=== PATIENT | female | born 1985 | race Caucasian/White ===

== ENCOUNTER 2020-05-04 15:00 | Outpatient (REF) | payer OTHER, SELFPAY | END 2020-05-04 15:01 | disposition home or self-care (01) | LOC: HO.LAB 15:00 | PROVIDERS: Visit Provider Physician Assistant | DX: R05 Cough (principal); Z20.822 Contact with and (suspected) exposure to COVID-19 | CPT/HCPCS: 36415; U0003 ==

== ENCOUNTER 2020-06-15 11:15 | Outpatient (REF) | payer OTHER, SELFPAY ==
[2020-06-15 13:50] LABS: MANUAL DIFF FLAG NO
[2020-06-15 14:00] LABS: Basophils Percent Auto 0.4 % (0-2); Hematocrit 39.6 % (37-47); Hemoglobin 12.7 g/dl (12.0-16.0); Lymphocytes Absolute Auto 1.6 X10*3/uL (1.2-4.9); Lymphocytes Percent Auto 30.1 % (20-40); Mean Corpuscular HGB Conc 32.1 g/dl (31.0-35.0); Mean Corpuscular Volume 87.2 fL (80-98); Mean Platelet Volume 11.2 fL (9.4-12.3); Monocytes Absolute Auto 0.5 X10*3/uL (0.1-1.2); Monocytes Percent Auto 9.8 % (2-11); Neutrophils Absolute Auto 3.2 X10*3/uL (2.0-8.3); Neutrophils Percent Auto 59.7 % (45-73); Platelet Count 271 X10*3/uL (160-400); Red Blood Count 4.54 X10*6/uL (4.20-5.50); Red Cell Distribution Width 12.7 % (11.0-16.0); White Blood Count 5.4 X10*3/uL (4.8-10.8)
[2020-06-15 14:44] LABS: Alanine Aminotransferase 10 U/L (0-31); Albumin Level 4.6 g/dL (3.5-5.0); Alkaline Phosphatase 71 U/L (39-117); Anion Gap 13 (12-20); Aspartate Amino Transferase 11 U/L (5-31); Bilirubin Total 0.6 mg/dL (0.0-1.0); Blood Urea Nitrogen 10 mg/dL (9-16); Calcium 9.2 mg/dL (8.4-10.2); Carbon Dioxide 28 mmol/L (22-29); Chloride 105 mmol/L (96-108); Cholesterol 127 mg/dL; Estimated Glomerular Filt Rate > 60; Glucose Fasting 83 mg/dL (60-99); HDL Cholesterol 44 mg/dL; LDL Cholesterol Calculated 71 mg/dl; Sodium 142 mmol/L (135-145); Triglycerides 64 mg/dL
[2020-06-15 15:05] LABS: TSH reflex Free T4 2.36 uIU/mL (0.32-4.0); Vitamin D 25-OH Total 8.8 ng/mL (>30)
== END 2020-06-15 11:16 | disposition home or self-care (01) ==
LOC: HO.HMGCLDS 11:15
PROVIDERS: PCP Internal Medicine; Visit Provider Internal Medicine
DX: Z00.01 Encounter for general adult medical examination with abnormal findings (principal); Z13.220 Encounter for screening for lipoid disorders; Z13.29 Encounter for screening for other suspected endocrine disorder; Z20.822 Contact with and (suspected) exposure to COVID-19
CPT/HCPCS: 36415; 80053; 80061; 82306; 84443; 85025

== ENCOUNTER → 2020-11-16 10:21 | Outpatient (REF) | payer OTHER, SELFPAY ==
--- NOTE | 2020-11-16 10:28 | CA_ITS ---
Transthoracic Echocardiogram Patient (Last, First, Middle): Beth Arteaga, Gender: Female Date of : 1985 Age: 35 Procedure Date: 11/16/2020 Procedure Type: Transthoracic Echocardiogram Location: OP Height: 62. cm Weight: 45. kg BSA: 0.72 m2 Heart Rate: bpm BP: 110 / 63 mmHg Polishing Machine Operator: LEANN Referring MD: Mildred Fernández NP Symptoms: R01.1 - Cardiac murmur, unspecified Study Quality: Good ECG Rhythm: Sinus Conclusions: - The left ventricular systolic function is normal. The calculated ejection fraction is 63% by biplane method. - No obvious valvular pathology seen on this study. Findings Left Ventricle Normal left ventricular cavity size. There is normal left ventricular wall thickness. The left ventricular systolic function is normal. The calculated ejection fraction is 63% by biplane method. There is no evidence of regional wall motion abnormalities. Diastolic function is normal for age. Right Ventricle Normal right ventricular cavity size and systolic function. Atria Both atria are normal in size. Aortic Valve There is a normal trileaflet aortic valve. There is no aortic valve stenosis. There is no aortic valve regurgitation. Mitral Valve The mitral valve appears normal. There is no mitral valve regurgitation. There is no mitral valve stenosis. Pulmonic Valve The pulmonic valve was not well visualized. Tricuspid Valve There is trace tricuspid valve regurgitation. The pulmonary artery systolic pressure is normal. Great Vessels The aortic annulus, sinuses of valsalva, and asc aorta are normal in size. Venous The inferior vena cava was not well visualized. Pericardium/Pleural There is no evidence of pericardial effusion. Prior Study Comparison No prior study available for comparison. Recommendations, Care & Conclusions No obvious valvular pathology seen on this study. Measurements 2D Linear Measurements IVSd: 0.70 0.6-0.9/0.6-1.0 cm LVIDd: 3.92 3.9-5.3/4.2-5.9 cm LVIDd Index: 5.44 2.4-3.2/2.2-3.1 cm/m2 LVIDs: 2.57 2.0-3.6 cm LVPWd: 0.78 0.7-1.1 cm Ao Root: 2.30 2.1-3.5 cm LA Diam: 2.10 2.7-3.8/3.0-4.0 cm LAIDs Index: 2.92 1.5-2.3 cm/m2 LV Mass: 100.57 67-162/88-224 g LV Mass Index: 139.68 43-95/49-115 g/m2 LVOT Diam: 1.70 3.0+(-)1.3 cm 2D Systolic Function EF 4C: 65.00 >55% EF 2C: 61.50 >55% EF BiP: 63.20 >55% Mitral Valve MV Pk E: 0.68 MV PK A: 0.49 MV Decel Time: 130.00 E/A: 1.40 E'Lateral: 16.60 E'Medial: 13.20 E/E' Med: 5.10 E/E' Lat: 4.10 PHT: 38.00 MVA PHT: 5.79 Decel Mccurtain: 5.22 Aortic Valve AoV Pk Ozzie: 1.30 AoV Pk Grad: 7.00 LVOT LVOT Pk Ozzie: 0.98 LVOT Mn Ozzie: 0.75 LVOT VTI: 0.19 LVOT Pk Grad: 4.00 LVOT Mn Grad: 3.00 LVOT Diam: 1.70 LVOT Area: 2.27 Diastolic Function MV Pk E: 0.68 MV Pk A: 0.49 E/A: 1.40 E'Medial: 13.20 E/E' Med: 5.10 E' Laterial: 16.60 E/E' Lat: 4.10 Right Ventricle TAPSE (mm): 2.11 Tricuspid Valve TR Pk Ozzie: 1.98 TR Pk Grad: 16.00 RA Press: 3.00 RVSP: 19.00 Great Vessels Aorta Ao Root-2D: 2.30 2.0-3.7 cm Ao Asc: 2.40 2.1-3.4 cm Updated in Other Vendor System with Status of Final Jacky Ya MD electronically signed on 11/16/2020 12:00:48 PM with status of Final
== END ==
LOC: HO.CARD 10:21
PROVIDERS: Visit Provider Nurse Practitioner Family
DX: R01.1 Cardiac murmur, unspecified (principal)
CPT/HCPCS: 93306

== ENCOUNTER 2021-10-26 17:42 | Emergency (ER) | payer OTHER, SELFPAY ==
--- NOTE | ~2021-10-26 | XR_ITS ---
EXAMINATION: XR CHEST CLINICAL INFORMATION: Hemoptysis COMPARISON: None TECHNIQUE: Frontal view of the chest was obtained. FINDINGS: No significant abnormality is noted involving the heart, lungs, mediastinum, bony thorax or soft tissues. XR/XR chest 1V IMPRESSION: Unremarkable examination.
[2021-10-26 19:43] VITALS: BP 118/68; PULSE 85; RESP 16; TEMP 36.7; O2SAT 99; BMI 17.9
[2021-10-26 20:18] LABS: COVID-19 Test Negative (Negative); IDNOW Serial# 55D5AD1C
== END 2021-10-26 22:25 | disposition left against medical advice (07) ==
PROVIDERS: Emergency Provider Emergency Medicine
DX: R04.2 Hemoptysis (principal); Z20.822 Contact with and (suspected) exposure to COVID-19; Z79.899 Other long term (current) drug therapy
CPT/HCPCS: 71045; 87635; 99281; 99282

== ENCOUNTER 2022-01-08 09:34 | Outpatient (REF) | payer OTHER, SELFPAY ==
[2022-01-08 11:15] LABS: MANUAL DIFF FLAG NO
[2022-01-08 11:26] LABS: Basophils Percent Auto 0.5 % (0-2); Hematocrit 35.4 % (37.0-47.0); Hemoglobin 11.5 g/dl (12.0-16.0); Lymphocytes Absolute Auto 1.5 X10*3/uL (1.2-4.9); Mean Corpuscular HGB Conc 32.5 g/dl (31.0-35.0); Mean Corpuscular Hemoglobin 27.6 pg (27.0-33.0); Mean Corpuscular Volume 84.9 fL (80.0-98.0); Mean Platelet Volume 10.5 fL (9.4-12.3); Monocytes Absolute Auto 0.4 X10*3/uL (0.1-1.2); Monocytes Percent Auto 9.4 % (2-11); Neutrophils Absolute Auto 2.4 x10*3/uL (2.0-8.3); Neutrophils Percent Auto 56.1 % (45-73); Platelet Count 277 X10*3/uL (160-400); Red Blood Count 4.17 X10*6/uL (4.20-5.50); Red Cell Distribution Width 12.4 % (11.0-16.0); White Blood Count 4.3 X10*3/uL (4.8-10.8)
[2022-01-08 11:41] LABS: Alanine Aminotransferase 11 U/L (0-31); Anion Gap 13 (12-20); Aspartate Amino Transferase 13 U/L (5-31); Blood Urea Nitrogen 7 mg/dL (9-16); Calcium 9.4 mg/dL (8.4-10.2); Carbon Dioxide 30 mmol/L (22-29); Chloride 104 mmol/L (96-108); Cholesterol 115 mg/dL; Estimated Glomerular Filt Rate > 60; Glucose Fasting 90 mg/dL (60-99); HDL Cholesterol 39 mg/dL; LDL Cholesterol Calculated 66 mg/dl; Potassium 4.4 mmol/L (3.3-5.1); Sodium 143 mmol/L (135-145); Triglycerides 53 mg/dL
[2022-01-08 12:03] LABS: Vitamin D 25-OH Total 35.1 ng/mL (>30)
[2022-01-08 12:06] LABS: Folate 9.7 ng/mL (> or = 4.0); Vitamin B12 289 pg/mL (200-900)
== END 2022-01-08 09:35 | disposition home or self-care (01) ==
LOC: HO.HMGCLDS 09:34
PROVIDERS: PCP Internal Medicine; Visit Provider Internal Medicine
DX: Z00.01 Encounter for general adult medical examination with abnormal findings (principal); E51.11 Dry beriberi; E55.9 Vitamin D deficiency, unspecified; F79 Unspecified intellectual disabilities; F90.9 Attention-deficit hyperactivity disorder, unspecified type; K21.00 Gastro-esophageal reflux disease with esophagitis, without bleeding; K59.00 Constipation, unspecified
CPT/HCPCS: 36415; 80048; 80061; 82306; 82607; 82746; 84450; 84460; 85025

== ENCOUNTER 2022-12-21 10:59 | Outpatient (AMB) | payer OTHER, SELFPAY ==
--- NOTE | 2022-12-21 11:09 | MHC.PC.OV ---
Vital Signs 12/21/22 11:16 Height 5 ft 2 in Weight 94 lb BMI 17.2 BP 90/68 Blood Pressure Location Lt brachial Position Sitting Pulse 81 Pulse Source Pulse Oximeter Pulse Oximetry (%) 100 Oxygen Delivery Method Room Air Intake Visit Reasons: Annual PE Intake Note: Pt is here today for her PE Is last menstrual period known: Yes Last menstrual period: 12/07/22 Allergies No Known Drug Allergies [NO KNOWN DRUG ALLERGIES] Allergy (Unknown, Verified 12/21/22 11:32) NONE Medication List - Last Reconciled 12/21/22 by Kristal Anderson MD docusate sodium 100 mg PO DAILY ferrous fumarate 324 mg PO DAILY 3 months methylphenidate HCl ER (Concerta) 18 mg PO QAM Tobacco use date assessed: 12/21/22 Dental Screening Dental Screen Date: 12/21/22 Did you have a dental visit in the last 12 months?: Yes Did you have a dental problem in the last 6 months where you did not have access to dental care?: No Was dental information given to patient?: Patient has dentist HPI Annual PE HPI Details ? ? 37-year-old lady here today for physical exam. She has mild intellectual disability, has ADD currently being followed by Psychiatry currently on Concerta, has history of Thiamine? deficiency neuropathy? and Vitamin d deficiency. . ? ? She has been evaluated and seen by OB, unable to tolerate Pap/pelvic exam, has never been sexually active. ?? ? Had an EGD in 2018, which showed presence of GERD in distal esophagitis and mild hiatal hernia, currently asymptomatic. ? ? Complaining of intermittent episodes of constipation, aggravated by intake of iron supplement tablets for treatment of her anemia. ? ? Goes to an adult day program in [place], sees [facility] every 6 months Requests to get a prescription for her ensure supplement, has been on this in the past. Patient however does not eat breakfast, eats a microwavable meal for lunch which she brings to work, and eat supper irregularly. [facility] Medical History ADHD (attention deficit hyperactivity disorder) Anemia Annual visit for general adult medical examination with abnormal findings Constipation GERD with esophagitis History of COVID-19 IBS (irritable bowel syndrome) Intellectual disability Thiamine deficiency neuropathy Undernutrition Underweight Vitamin D deficiency Surgical History History of esophagogastroduodenoscopy Family History Father No problems noted. Mother Diabetes mellitus History of thyroidectomy Maternal Grandfather No problems noted. Maternal Grandmother No problems noted. Paternal Grandfather No problems noted. Paternal Grandmother No problems noted. Brother No problems noted. Social History Household Members Other:: father Housing: House Alcohol intake: never Patient Tobacco Use Status: Never used Tobacco e-Cigarette/Vaping Use: Never Used service: No Current occupational status: unemployed Cognitive needs: No Hearing needs: No Vision needs: No Female Reproductive History Menstrual Date of last menstrual period: 12/07/22 Questionnaire PHQ-9 Over the last 2 weeks, how often have you been bothered by any of the following problems? 14455 - PHQ-9 Billing: Patient declined-do not bill Source: Developed by Drs. Alhaji Alaniz, Kerry Haider, Hugh Pagan and colleagues, with an educational rodolfo from [employer]. Thrive Questionnaire Date Thrive assessed: 12/21/22 I am a: Parent/Caregiver What is your living situation today?: I have a steady place to live Within the past 12 months, did the food you bought not last and you didn't have the money to get more?: Never true Within the past 12 months, did you worry whether your food would run out before you got money to buy more?: Never true Do you have trouble paying for medicines?: No Do you have trouble getting transportation to medical appointments?: No Do you have trouble paying your heating and electricity bill?: No Do you have trouble taking care of your child, family member or friend?: No Do you have trouble with day-to-day activities such as bathing, preparing meals, shopping, managing finances, etc.?: No Are you currently unemployed and looking for a job?: No Are you interested in more education?: No AUDIT C Alcohol Use Questionnaire (AUDIT-C) 1. How often do you have a drink containing alcohol?: Never Total Score: 0 TO-7 AMB Questionnaire TO-7 Date TO - 7 assessed: 12/21/22 Source: Developed by Drs. Alhaji Alaniz, Kerry Haider, Hugh Pagan and colleagues, with an educational rodolfo from [employer]. TO-7 Assessment Billing TO-7 Assessment Tool: pt declined-do not bill Review of Systems Const Denies body aches, Reports fatigue, Denies fever(s), Denies headache(s), Denies poor appetite, Denies weakness and Reports weight loss Eyes Denies change in vision, Denies eye discharge and Denies itchy eyes ENT Details: Complaining of occasional itchy years Denies dizziness, Denies headache(s), Denies mouth pain, Denies nasal congestion, Denies nasal discharge, Denies disequilibrium, Denies post nasal drip and Denies sore throat Card Denies chest pain, Denies lightheadedness, Denies palpitations and Denies dyspnea Resp Denies chest congestion, Denies cough, Denies dyspnea and Denies wheezing GI Denies abdominal pain, Denies hematochezia, Reports constipation, Reports dyspepsia (Occasional) and Reports heartburn Denies hematuria, Denies urinary frequency, Denies dysuria and Denies urinary urgency Musc Reports no additional complaints Skin/Breast Denies breast pain, Denies breast mass, Denies lesions and Denies rash Neuro Denies dizziness, Denies headache(s), Denies disequilibrium and Denies weakness Psych Reports as per HPI Endo Reports fatigue, Denies polydipsia, Denies polyuria and Denies palpitations Vincenzo/Lymph Denies easy bleeding and Denies easy bruising Aller/Immun Denies itchy eyes, Denies seasonal rhinorrhea and Denies wheezing Physical exam (Primary Care) Vital Signs: Last Vital Signs Pulse 81 12/21/22 11:16 BP 90/68 12/21/22 11:16 Pulse Ox 100 12/21/22 11:16 Oxygen Delivery Method Room Air 12/21/22 11:16 BMI result Body Mass Index 17.2 BMI Assessment/Plan discussion: Low (Nutrition consult ordered, prescription sent for ensure supple a) Tobacco/Smoking Status: Tobacco use Status Tobacco use date assessed 12/21/22 12/21/22 11:19 Patient Tobacco Use Status Never used Tobacco 12/21/22 11:12 e-Cigarette/Vaping Use Never Used 12/21/22 11:12 Thrive Assessment: Date of Thrive Assessment Date Thrive assessed 12/21/22 12/21/22 11:19 Advance Care Planning discussion: Completed/Scanned Date of discussion: 12/21/22 Who was present: Patient and father Forms completed: Health Care Proxy Time spent: 16-45 minutes Actual minutes spent: 16 Const General: cooperative, comfortable and no acute distress Nutritional Appearance: underweight Orientation/consciousness: patient oriented x3 HENMT Head: Yes normocephalic and Yes atraumatic Ears: hearing grossly normal bilaterally, TM's normal bilaterally and EAC's normal General nose exam: Normal external nose present and No nasal discharge present Face and sinus: Yes sinuses nontender and Yes face symmetric Mouth: Normal oral and palatal mucosa present, lip normal, tongue normal, oropharynx normal and moist mucous membranes Teeth and gingiva: caries, gingiva abnormal and poor dentition Eyes General: appearance normal, both eyes and all related structures Periorbital: periorbital findings normal Eyelids: Yes eyelids normal Conjunctivae: conjunctivae normal Sclerae: sclerae normal Pupils: Equal, round and reactive pupils present EOM: EOMs intact bilaterally Neck Neck: Yes full ROM, Yes no lymphadenopathy, Yes no meningeal signs and Yes supple Thyroid: Thyroid normal (Nonpalpable) Chest Chest palpation & inspection: normal inspection of the chest Breast/axilla palpation: normal palpation of the breasts and normal palpation of the axillae Resp Effort & Inspection: normal respiratory effort and able to speak in complete sentences Auscultation: clear to auscultation bilaterally Cardio Other: S1 and S2 present regular rate and rhythm, no murmurs GI Palpation (GI): Soft to palpation, nontender, no guarding and no masses Other: Deferred, patient declined exam General: Yes no CVA tenderness Back/Spine/Pelvis Back: no CVA tenderness and No back tenderness Skin General skin exam: no rashes or lesions noted Neuro General: patient oriented x3, moves all extremities, no meningeal signs, no focal motor deficits and CN's II-XI intact bilaterally Cranial nerves: Yes Equal, round and reactive pupils present Extrem General: Yes full ROM, Yes no joint enlargement, Yes no pedal edema, Yes no calf tenderness and Yes normal gait Psych Appearance: grossly normal and well kempt Mental Status: mental status grossly normal Speech and movement: Normal speech and movement present Affect: normal affect Attitude: cooperative Assessment and Plan Assessment & Plan (1) Anemia: Code(s): D64.9 - Anemia, unspecified Plan: Check CBC and iron level, continue taking ferrous sulfate 324 mg 1 daily, referred to commercial carpenter for further guidance (2) Undernutrition: Code(s): E63.9 - Nutritional deficiency, unspecified Plan: Referral to nurse navigator/commercial carpenter for dietary (3) Annual visit for general adult medical examination with abnormal findings: Code(s): Z00.01 - Encounter for general adult medical examination with abnormal findings Plan: Will check appropriate labs. Currently sees her dentist, [facility], every 6 months and advised to get regular eye exams, at least every 2 years. Take adequate calcium in diet and vitamin-D 3 at 2000 IU per cap once a day, in addition to weight-bearing exercises to help maintain good muscle tone and weight control. Instructed to do self-breast exam, and recommended to get yearly mammogram, starting at age 40. Referred to [facility] for her initial cervical cancer screening. Recommend to get yearly flu vaccine, and COVID booster, up-to-date with her Tdap (4) Underweight: Code(s): R63.6 - Underweight Plan: Nutrition consult obtain (5) Intellectual disability: Code(s): F79 - Unspecified intellectual disabilities (6) Vitamin D deficiency: Code(s): E55.9 - Vitamin D deficiency, unspecified Plan: Will check vitamin-D level (7) ADHD (attention deficit hyperactivity disorder): Code(s): F90.9 - Attention-deficit hyperactivity disorder, unspecified type Plan: Currently followed by psychiatry, currently on Concerta followed by Dianne Booker (8) Thiamine deficiency neuropathy: Code(s): E51.11 - Dry beriberi Plan: Check vitamin B1 level (9) Constipation: Code(s): K59.00 - Constipation, unspecified Plan: Refill for docusate sodium sent, advised increase dietary fiber intake (10) GERD with esophagitis: Comment: on EGD done 10/[address] trinidad Code(s): K21.00 - Gastro-esophageal reflux disease with esophagitis, without bleeding Plan: Advised to avoid dietary triggers that includes anything acidic, tomato based foods, grilled foods, greasy foods (11) Cervical cancer screening: Code(s): Z12.4 - Encounter for screening for malignant neoplasm of cervix Plan: Referred to [facility] for her initial cervical cancer screening and pelvic exam. Orders: Orders Comprehensive [place]. Panel Fast Today D64.9 - Anemia, unspecified, E51.11 - Dry beriberi, E55.9 - Vitamin D deficiency, unspecified, E63.9 - Nutritional deficiency, unspecified, F79 - Unspecified intellectual disabilities, F90.9 - Attention-deficit hyperactivity disorder, unspecified type, K21.00 - Gastro-esophageal reflux disease with esophagitis, without bleeding, K59.00 - Constipation, unspecified, R63.6 - Underweight, Z00.01 - Encounter for general adult medical examination with abnormal findings Complete Blood Count Auto Diff Today D64.9 - Anemia, unspecified, E51.11 - Dry beriberi, E55.9 - Vitamin D deficiency, unspecified, E63.9 - Nutritional deficiency, unspecified, F79 - Unspecified intellectual disabilities, F90.9 - Attention-deficit hyperactivity disorder, unspecified type, K21.00 - Gastro-esophageal reflux disease with esophagitis, without bleeding, K59.00 - Constipation, unspecified, R63.6 - Underweight, Z00.01 - Encounter for general adult medical examination with abnormal findings IRON PROFILE Today D64.9 - Anemia, unspecified, E51.11 - Dry beriberi, E55.9 - Vitamin D deficiency, unspecified, E63.9 - Nutritional deficiency, unspecified, F79 - Unspecified intellectual disabilities, F90.9 - Attention-deficit hyperactivity disorder, unspecified type, K21.00 - Gastro-esophageal reflux disease with esophagitis, without bleeding, K59.00 - Constipation, unspecified, R63.6 - Underweight, Z00.01 - Encounter for general adult medical examination with abnormal findings Lipid Panel Today D64.9 - Anemia, unspecified, E51.11 - Dry beriberi, E55.9 - Vitamin D deficiency, unspecified, E63.9 - Nutritional deficiency, unspecified, F79 - Unspecified intellectual disabilities, F90.9 - Attention-deficit hyperactivity disorder, unspecified type, K21.00 - Gastro-esophageal reflux disease with esophagitis, without bleeding, K59.00 - Constipation, unspecified, R63.6 - Underweight, Z00.01 - Encounter for general adult medical examination with abnormal findings Vitamin D 25-OH Total Today D64.9 - Anemia, unspecified, E51.11 - Dry beriberi, E55.9 - Vitamin D deficiency, unspecified, E63.9 - Nutritional deficiency, unspecified, F79 - Unspecified intellectual disabilities, F90.9 - Attention-deficit hyperactivity disorder, unspecified type, K21.00 - Gastro-esophageal reflux disease with esophagitis, without bleeding, K59.00 - Constipation, unspecified, R63.6 - Underweight, Z00.01 - Encounter for general adult medical examination with abnormal findings Vitamin B12 and Folate Today D64.9 - Anemia, unspecified, E51.11 - Dry beriberi, E55.9 - Vitamin D deficiency, unspecified, E63.9 - Nutritional deficiency, unspecified, F79 - Unspecified intellectual disabilities, F90.9 - Attention-deficit hyperactivity disorder, unspecified type, K21.00 - Gastro-esophageal reflux disease with esophagitis, without bleeding, K59.00 - Constipation, unspecified, R63.6 - Underweight, Z00.01 - Encounter for general adult medical examination with abnormal findings TSH reflex Free T4 Today D64.9 - Anemia, unspecified, E51.11 - Dry beriberi, E55.9 - Vitamin D deficiency, unspecified, E63.9 - Nutritional deficiency, unspecified, F79 - Unspecified intellectual disabilities, F90.9 - Attention-deficit hyperactivity disorder, unspecified type, K21.00 - Gastro-esophageal reflux disease with esophagitis, without bleeding, K59.00 - Constipation, unspecified, R63.6 - Underweight, Z00.01 - Encounter for general adult medical examination with abnormal findings Vitamin B1 Today D64.9 - Anemia, unspecified, E51.11 - Dry beriberi, E55.9 - Vitamin D deficiency, unspecified, E63.9 - Nutritional deficiency, unspecified, F79 - Unspecified intellectual disabilities, F90.9 - Attention-deficit hyperactivity disorder, unspecified type, K21.00 - Gastro-esophageal reflux disease with esophagitis, without bleeding, K59.00 - Constipation, unspecified, R63.6 - Underweight, Z00.01 - Encounter for general adult medical examination with abnormal findings Referrals PERSONNEL OFFICER Referral Z12.4 - Encounter for screening for malignant neoplasm of cervix Medications: New food supplemt, lactose-reduced (Ensure Original oral liquid) Patient wants chocolate flavor 1 ea PO .qd 30 days 30 mL 5RF D64.9 - Anemia, unspecified, E63.9 - Nutritional deficiency, unspecified, R63.6 - Underweight, Z00.01 - Encounter for general adult medical examination with abnormal findings Refilled docusate sodium 100 mg PO DAILY 30 caps 5RF K59.00 - Constipation, unspecified Coding Level of Care Code Est Pt Prev Care 18-39y([id number]) Diagnoses Anemia D64.9 Undernutrition E63.9 Annual visit for general adult medical examination with abnormal findings Z00.01 Underweight R63.6 Intellectual disability F79 Vitamin D deficiency E55.9 ADHD (attention deficit hyperactivity disorder) F90.9 Thiamine deficiency neuropathy E51.11 Constipation K59.00 GERD with esophagitis K21.00 Cervical cancer screening Z12.4 Additional Codes Vital Signs *Quality* - Advance Care Planning discussion: Completed/Scanned ([id number]) Vital Signs *Quality* - Time spent: 16-45 minutes ([id number])
[2022-12-21 11:16] VITALS: BP 90/68; PULSE 81; O2SAT 100; BMI 17.2
== END 2022-12-21 12:02 | disposition home or self-care (01) ==
PROVIDERS: Visit Provider Internal Medicine
DX: Z00.00 Encounter for general adult medical examination without abnormal findings (principal); D64.9 Anemia, unspecified; E55.9 Vitamin D deficiency, unspecified; F90.9 Attention-deficit hyperactivity disorder, unspecified type; E63.9 Nutritional deficiency, unspecified; R63.6 Underweight; F79 Unspecified intellectual disabilities; E51.11 Dry beriberi; K59.00 Constipation, unspecified; K21.00 Gastro-esophageal reflux disease with esophagitis, without bleeding
CPT/HCPCS: 99395; 99497

== ENCOUNTER 2022-12-21 12:05 | Outpatient (REF) | payer OTHER, SELFPAY ==
[2022-12-21 13:32] LABS: MANUAL DIFF FLAG NO
[2022-12-21 13:47] LABS: Basophils Percent Auto 0.4 % (0-2); Hematocrit 38.4 % (37.0-47.0); Hemoglobin 12.4 g/dl (12.0-16.0); Imm Gran Abs Auto 0.01 X10*3/uL (0.00-0.03); Imm Gran Pct Auto 0.2 % (0.0-0.4); Lymphocytes Absolute Auto 1.7 X10*3/uL (1.2-4.9); Lymphocytes Percent Auto 31.4 % (20-40); Mean Corpuscular HGB Conc 32.3 g/dl (31.0-35.0); Mean Corpuscular Hemoglobin 27.9 pg (27.0-33.0); Mean Corpuscular Volume 86.5 fL (80.0-98.0); Mean Platelet Volume 10.6 fL (9.4-12.3); Monocytes Absolute Auto 0.5 X10*3/uL (0.1-1.2); Monocytes Percent Auto 10.2 % (2-11); Neutrophils Absolute Auto 3.1 x10*3/uL (2.0-8.3); Neutrophils Percent Auto 57.8 % (45-73); Platelet Count 256 X10*3/uL (160-400); Red Blood Count 4.44 X10*6/uL (4.20-5.50); Red Cell Distribution Width 12.6 % (11.0-16.0); White Blood Count 5.3 X10*3/uL (4.8-10.8)
[2022-12-21 14:26] LABS: Alanine Aminotransferase 11 U/L (0-31); Albumin Level 4.4 g/dL (3.5-5.0); Alkaline Phosphatase 72 U/L (39-117); Anion Gap 10 (12-20); Aspartate Amino Transferase 13 U/L (5-31); Bilirubin Total 0.6 mg/dL (0.0-1.0); Blood Urea Nitrogen 7 mg/dL (9-16); Calcium 9.8 mg/dL (8.4-10.2); Carbon Dioxide 27 mmol/L (22-29); Chloride 106 mmol/L (96-108); Cholesterol 118 mg/dL (<200); Estimated Glomerular Filt Rate > 60; Glucose Fasting 87 mg/dL (60-99); HDL Cholesterol 42 mg/dL (>40); Iron 103 mcg/dL (30-160); LDL Cholesterol Calculated 66 mg/dL (<100); Percent Iron Saturation 42 % (15-50); Potassium 3.9 mmol/L (3.3-5.1); Sodium 139 mmol/L (135-145); Total Iron Binding Capacity 248 mcg/dL (228-428); Total Protein 7.9 g/dL (6.5-8.0); Triglycerides 51 mg/dL (<150); Unsaturated Iron Binding 145 ug/dL
[2022-12-21 14:28] LABS: TSH reflex Free T4 1.75 uIU/mL (0.32-4.0); Vitamin D 25-OH Total 33.9 ng/mL (>30)
[2022-12-21 14:46] LABS: Folate 5.9 ng/mL (> or = 4.0); Vitamin B12 265 pg/mL (200-900)
[2022-12-26 15:23] LABS: Vitamin B1 9 nmol/L (8-30)
== END 2022-12-21 12:06 | disposition home or self-care (01) ==
LOC: HO.HMGCLDS 12:05
PROVIDERS: PCP Internal Medicine; Visit Provider Internal Medicine
DX: Z00.01 Encounter for general adult medical examination with abnormal findings (principal); D64.9 Anemia, unspecified; E51.11 Dry beriberi; E55.9 Vitamin D deficiency, unspecified; E63.9 Nutritional deficiency, unspecified; F79 Unspecified intellectual disabilities; F90.9 Attention-deficit hyperactivity disorder, unspecified type; K21.00 Gastro-esophageal reflux disease with esophagitis, without bleeding; K59.00 Constipation, unspecified; R63.6 Underweight
CPT/HCPCS: 36415; 80053; 80061; 82306; 82607; 82746; 83540; 84425; 84443; 85025

== ENCOUNTER 2023-09-27 10:21 | Outpatient (AMB) | payer OTHER, SELFPAY ==
[2023-09-27 10:24] VITALS: BP 118/68; PULSE 69; TEMP 36.4; O2SAT 97; BMI 17.0
--- NOTE | 2023-09-27 10:24 | MHC.OFFWIV ---
Intake Vital Signs 09/27/23 10:24 Height 5 ft 2 in Weight 93 lb BMI 17.0 BP 118/68 Blood Pressure Location Lt brachial Position Sitting Pulse 69 Pulse Source Pulse Oximeter Temp 97.6 F Temp Source Temporal Artery Scan Pulse Oximetry (%) 97 Oxygen Delivery Method Room Air Intake Visit Reasons: EP Chest pain due to Cold Symptoms Intake Note: pt is here today for chest pain due to cold symptoms started 1 week ago Patient Tobacco Use Status: Never used Tobacco Allergies No Known Drug Allergies [NO KNOWN DRUG ALLERGIES] Allergy (Unknown, Verified 09/27/23 10:27) NONE Do you need a note to return to daycare/school/sports/work: No HPI HPI Comments History of Present Illness Details Patient is a 38-year-old female complaining of 10 days of a dry cough, on and off ear pain, facial pain. She states she has coughing spells and she can not stop coughing, worse when laying flat. She is experiencing chest pain because of the coughing. She denies any nausea vomiting diarrhea or fevers. She does not take an allergy pill and has not tried to take any medication to make herself feel better. [facility] Medical History ADHD (attention deficit hyperactivity disorder) Anemia Annual visit for general adult medical examination with abnormal findings Constipation GERD with esophagitis History of COVID-19 IBS (irritable bowel syndrome) Intellectual disability Thiamine deficiency neuropathy Undernutrition Underweight Vitamin D deficiency Surgical History History of esophagogastroduodenoscopy Family History Father No problems noted. Mother Diabetes mellitus History of thyroidectomy Maternal Grandfather No problems noted. Maternal Grandmother No problems noted. Paternal Grandfather No problems noted. Paternal Grandmother No problems noted. Brother No problems noted. Social History Household Members Other:: father Housing: House Alcohol intake: never Patient Tobacco Use Status: Never used Tobacco e-Cigarette/Vaping Use: Never Used service: No Current occupational status: unemployed Cognitive needs: No Hearing needs: No Vision needs: No Review of Systems Const All systems reviewed & are unremarkable except as noted in HPI and below Physical Exam Vital Signs: Last Vital Signs Temp 97.6 F 09/27/23 10:24 Pulse 69 09/27/23 10:24 BP 118/68 09/27/23 10:24 Pulse Ox 97 09/27/23 10:24 Oxygen Delivery Method Room Air 09/27/23 10:24 BMI result Body Mass Index 17.0 Const General: cooperative, healthy appearing, comfortable and no acute distress Orientation/consciousness: patient oriented x3 Limitations: no limitations HEENT Head: Yes normal to inspection Ears: external ears normal and TM's normal bilaterally General nose exam: Normal external nose present, Normal nares present and No nasal discharge present Face and sinus: Yes normal facial exam and Yes sinuses nontender Mouth: Normal oral and palatal mucosa present and moist mucous membranes Throat: Yes tonsils normal, Yes uvula midline and Yes cobblestoning (And erythema in the posterior oropharynx) Eyes General: appearance normal, both eyes and all related structures Neck Neck: Yes normal visual inspection Resp Effort & Inspection: normal respiratory effort, able to speak in complete sentences, Actively coughing, no respiratory distress, not tachypneic, no tripod positioning and no use of accessory muscles Auscultation: clear to auscultation bilaterally Cardio Rate: regular rate Rhythm: regular rhythm Heart sounds: normal S1 and S2 Skin General skin exam: no rashes or lesions noted Neuro General: patient oriented x3 Extrem General: Yes normal to inspection and Yes no clubbing, cyanosis or edema Assessment & Plan Assessment & Plan (1) Environmental allergies: Code(s): Z91.09 - Other allergy status, other than to drugs and biological substances Plan: Recommended starting daily allergy pill as well as sending a prescription for a albuterol inhaler. Gave patient education on how to use but did remind her to ask pharmacist to show her as well. (2) Cough: Comment: VSS Code(s): R05 - Cough Qualifiers: Cough type: acute Qualified Code(s): R05.1 - Acute cough Plan: see above Plan see above Medications: New albuterol sulfate 90 mcg/actuation 2 puffs inhalation Q6H PRN 6.7 grams 0RF shortness of breath or wheezing Coding Level of Care Code Est Pt Level 3 (75984) Diagnoses Environmental allergies Z91.09 Acute cough R05.1 Cough type: acute
== END 2023-09-27 10:54 | disposition home or self-care (01) ==
PROVIDERS: PCP Internal Medicine; Visit Provider Physician Assistant
DX: R05.1 Acute cough (principal); Z91.09 Other allergy status, other than to drugs and biological substances
CPT/HCPCS: 99213

== ENCOUNTER 2024-01-02 10:55 | Outpatient (AMB) | payer OTHER, SELFPAY ==
--- NOTE | 2024-01-02 11:08 | A.OFFPC_ITS ---
Vital Signs 01/02/24 11:12 Height 5 ft 2 in Weight 102 lb BMI 18.7 BP 100/64 Blood Pressure Location Lt brachial Position Sitting Pulse 116 H Pulse Source Pulse Oximeter Pulse Oximetry (%) 98 Oxygen Delivery Method Room Air Intake Visit Reasons: Annual PE- NEEDS PHQ9 Intake Note: Patient here for physical exam. Allergies No Known Drug Allergies [NO KNOWN DRUG ALLERGIES] Allergy (Unknown, Verified 01/02/24 11:19) NONE Medication List - Last Reconciled 01/02/24 by Kristal Anderson MD albuterol sulfate 90 mcg/actuation 2 puffs inhalation Q6H PRN docusate sodium 100 mg PO DAILY ferrous fumarate 324 mg PO DAILY 3 months levocetirizine (Xyzal) 5 mg PO QPM PRN methylphenidate HCl ER (Concerta) 18 mg PO QAM Tobacco use date assessed: 01/02/24 Dental Screening Dental Screen Date: 01/02/24 Did you have a dental visit in the last 12 months?: Yes Did you have a dental problem in the last 6 months where you did not have access to dental care?: No Was dental information given to patient?: Patient has dentist HPI Annual PE- NEEDS PHQ9 HPI Details -38 year-old lady here today for physica l exam. She has mild intellectual disability, has ADD currently being followed by Psychiatry, currently on Concerta. She has history of Thiamine? deficiency neuropathy? and Vitamin d deficiency. . ? ? She has been evaluated and seen by OB, unable to tolerate Pap/pelvic exam, has never been sexually active. She has gained some weight as compared to last check, has been taking dietary stimulant, which has helped increased her appetite. She goes to the day program in [facility] Medical History (Updated 01/02/24 @ 11:32 by Kristal Anderson MD) History of vitamin D deficiency History of anemia Undernutrition Constipation GERD with esophagitis Intellectual disability Thiamine deficiency neuropathy IBS (irritable bowel syndrome) ADHD (attention deficit hyperactivity disorder) History of COVID-19 Annual visit for general adult medical examination with abnormal findings Surgical History History of esophagogastroduodenoscopy Family History Father No problems noted. Mother Diabetes mellitus History of thyroidectomy Maternal Grandfather No problems noted. Maternal Grandmother No problems noted. Paternal Grandfather No problems noted. Paternal Grandmother No problems noted. Brother No problems noted. Social History Household Members Other:: father Housing: House Alcohol intake: never Patient Tobacco Use Status: Never used Tobacco e-Cigarette/Vaping Use: Never Used service: No Current occupational status: unemployed Cognitive needs: No Hearing needs: No Vision needs: No Female Reproductive History Menstrual Date of last menstrual period: 12/22/23 Questionnaire PHQ-9 Over the last 2 weeks, how often have you been bothered by any of the following problems? 9. Thoughts that you would be better off or of hurting yourself in some way: not at all [id number] - PHQ-9 Billing: Patient declined-do not bill Source: Developed by Drs. Alhaji Alaniz, Kerry Haider, Hugh Pagan and colleagues, with an educational rodolfo from [employer]. Thrive Questionnaire Date Thrive assessed: 01/02/24 What is your living situation today?: I choose not to answer this question Within the past 12 months, did the food you bought not last and you didn't have the money to get more?: I choose not to answer this question Within the past 12 months, did you worry whether your food would run out before you got money to buy more?: I choose not to answer this question Do you have trouble paying for medicines?: I choose not to answer this question Do you have trouble getting transportation to medical appointments?: I choose not to answer this question Do you have trouble paying your heating and electricity bill?: I choose not to answer this question Do you have trouble taking care of your child, family member or friend?: I choose not to answer this question Do you have trouble with day-to-day activities such as bathing, preparing meals, shopping, managing finances, etc.?: I choose not to answer this question Are you currently unemployed and looking for a job?: I choose not to answer this question Are you interested in more education?: I choose not to answer this question Currently or been in a relationship where the following occur: I choose not to answer THRIVE Score: 0 AUDIT C Alcohol Use Questionnaire (AUDIT-C) 1. How often do you have a drink containing alcohol?: Never 3. How often do you have six or more drinks on one occasion?: Never Total Score: 0 Score Reviewed/Action Taken: No TO-7 AMB Questionnaire TO-7 Date TO - 7 assessed: 01/02/24 Source: Developed by Drs. Alhaji Alaniz, Kerry Haider, Hugh Pagan and colleagues, with an educational rodolfo from [employer]. TO-7 Assessment Billing TO-7 Assessment Tool: pt declined-do not bill Review of Systems Const Denies body aches, Denies fever(s), Denies headache(s), Denies poor appetite and Denies weakness Eyes Denies change in vision and Denies itchy eyes ENT Details: Complaining of occasional itchy years Denies dizziness, Denies headache(s), Denies mouth pain, Denies nasal congestio n, Denies nasal discharge, Denies disequilibrium, Denies post nasal drip and Denies sore throat Card Denies chest pain, Denies lightheadedness, Denies palpitations and Denies dyspnea Resp Denies chest congestion, Denies cough, Denies dyspnea and Denies wheezing GI Denies abdominal pain, Denies hematochezia, Reports constipation, Reports dyspepsia (Occasional) and Reports heartburn Denies hematuria, Denies urinary frequency, Denies dysuria and Denies urinary urgency Musc Reports no additional complaints Skin/Breast Denies breast pain, Denies breast mass, Denies lesions and Denies rash Neuro Denies dizziness, Denies headache(s), Denies disequilibrium and Denies weakness Psych Reports no additional complaints Endo Denies polydipsia, Denies polyuria and Denies palpitations Vincenzo/Lymph Denies easy bleeding and Denies easy bruising Aller/Immun Denies itchy eyes, Denies seasonal rhinorrhea and Denies wheezing Physical exam (Primary Care) Vital Signs: Last Vital Signs Pulse 116 H 01/02/24 11:12 BP 100/64 01/02/24 11:12 Pulse Ox 98 01/02/24 11:12 Oxygen Delivery Method Room Air 01/02/24 11:12 BMI result Body Mass Index 18.7 Tobacco/Smoking Status: Tobacco use Status Tobacco use date assessed 01/02/24 01/02/24 11:14 Patient Tobacco Use Status Never used Tobacco 01/02/24 11:08 e-Cigarette/Vaping Use Never Used 01/02/24 11:08 PHQ-9: PHQ-9 Score PHQ-9: Total score 7 01/02/24 11:16 Thrive Assessment: Date of Thrive Assessment Date Thrive assessed 01/02/24 01/02/24 11:16 Currently or been in a relationship where the following occur: I choose not to answer Const General: cooperative, comfortable and no acute distress Nutritional Appearance: underweight Orientation/consciousness: patient oriented x3 HENMT Head: Yes normocephalic Ears: hearing grossly normal bilaterally, TM's normal bilaterally and EAC's normal General nose exam: Normal external nose present and No nasal discharge present Face and sinus: Yes face symmetric Mouth: Normal oral and palatal mucosa present, tongue normal, oropharynx normal and moist mucous membranes Teeth and gingiva: caries, gingiva abnormal and poor dentition Eyes General: appearance normal, both eyes and all related structures Periorbital: periorbital findings normal Eyelids: Yes eyelids normal Conjunctivae: conjunctivae normal Sclerae: sclerae normal Pupils: Equal, round and reactive pupils present EOM: EOMs intact bilaterally Neck Neck: Yes full ROM, Yes no lymphadenopathy, Yes no meningeal signs and Yes supple Thyroid: Thyroid normal (Nonpalpable) Chest Chest palpation & inspection: normal inspection of the chest Breast/axilla palpation: normal palpation of the breasts and normal palpation of the axillae Resp Effort & Inspection: normal respiratory effort and able to speak in complete sentences Auscultation: clear to auscultation bilaterally Cardio Other: S1 and S2 present regular rate and rhythm, no murmurs GI Palpation (GI): Soft to palpation, nontender, no guarding and no masses Other: Deferred, patient declined exam General: Yes no CVA tenderness Back/Spine/Pelvis Back: no CVA tenderness and No back tenderness Skin General skin exam: no rashes or lesions noted Neuro General: patient oriented x3, moves all extremities, no meningeal signs, no focal motor deficits and CN's II-XI intact bilaterally Cranial nerves: Yes Equal, round and reactive pupils present Extrem General: Yes full ROM, Yes no joint enlargement, Yes no pedal edema, Yes no calf tenderness and Yes normal gait Psych Appearance: grossly normal and well kempt Mental Status: mental status grossly normal Speech and movement: Normal speech and movement present Affect: normal affect Attitude: cooperative Assessment and Plan Assessment & Plan (1) Annual visit for general adult medical examination with abnormal findings: Code(s): Z00.01 - Encounter for general adult medical examination with abnormal findings Plan: Will check appropriate labs. Continue with regular dental visit every 6 months and regular eye exams, at least every 2 years. Advised to do self breast exams, ordered her initial screening mammogram. Patient would like a Monday appointment so father can take her. Does not want to get a Pap pelvic exam done , has tried in the past unable to tolerate. Reminded to get Yearly flu vaccine , but does not want to get a COVID booster, up-to-date with her Tdap . (2) ADHD (attention deficit hyperactivity disorder): Code(s): F90.9 - Attention-deficit hyperactivity disorder, unspecified type Plan: Currently on Concerta 18 mg daily in a.m., followed by psychiatry (3) Intellectual disability: Code(s): F79 - Unspecified intellectual disabilities Plan: Currently attends a Day program in [place] (4) Undernutrition: Code(s): E63.9 - Nutritional deficiency, unspecified Plan: Patient currently taking [id number] supra foods which helps stimulate her appetite,, has gained weight as compared to last visit (5) Environmental allergies: Code(s): Z91.09 - Other allergy status, other than to drugs and biological substances Plan: Patient takes Xyzal 5 mg once a day (6) History of anemia: Code(s): Z86.2 - Personal history of diseases of the blood and blood-forming organs and certain disorders involving the immune mechanism Plan: Will check CBC and iron profile (7) History of vitamin D deficiency: Code(s): Z86.39 - Personal history of other endocrine, nutritional and metabolic disease Plan: Ordered vitamin-D level Orders: Orders Basic Metabolic Panel Fasting Today E63.9 - Nutritional deficiency, unspecified, F79 - Unspecified intellectual disabilities, Z00.01 - Encounter for general adult medical examination with abnormal findings, Z86.2 - Personal history of diseases of the blood and blood-forming organs and certain disorders involving the immune mechanism, Z86.39 - Personal history of other endocrine, nutritional and metabolic disease, Z91.09 - Other allergy status, other than to drugs and biological substances Aspartate Amino Transferase Today E63.9 - Nutritional deficiency, unspecified, F79 - Unspecified intellectual disabilities, Z00.01 - Encounter for general adult medical examination with abnormal findings, Z86.2 - Personal history of diseases of the blood and blood-forming organs and certain disorders involving the immune mechanism, Z86.39 - Personal history of other endocrine, nutritional and metabolic disease, Z91.09 - Other allergy status, other than to drugs and biological substances Vitamin B12 and Folate Today E63.9 - Nutritional deficiency, unspecified, F79 - Unspecified intellectual disabilities, Z00.01 - Encounter for general adult medical examination with abnormal findings, Z86.2 - Personal history of diseases of the blood and blood-forming organs and certain disorders involving the immune mechanism, Z86.39 - Personal history of other endocrine, nutritional and metabolic disease, Z91.09 - Other allergy status, other than to drugs and biological substances Complete Blood Count Auto Diff Today E63.9 - Nutritional deficiency, unspecified, F79 - Unspecified intellectual disabilities, Z00.01 - Encounter for general adult medical examination with abnormal findings, Z86.2 - Personal history of diseases of the blood and blood-forming organs and certain disorders involving the immune mechanism, Z86.39 - Personal history of other endocrine, nutritional and metabolic disease, Z91.09 - Other allergy status, other than to drugs and biological substances Alanine Aminotransferase Today E63.9 - Nutritional deficiency, unspecified, F79 - Unspecified intellectual disabilities, Z00.01 - Encounter for general adult medical examination with abnormal findings, Z86.2 - Personal history of diseases of the blood and blood-forming organs and certain disorders involving the immune mechanism, Z86.39 - Personal history of other endocrine, nutritional and metabolic disease, Z91.09 - Other allergy status, other than to drugs and biological substances Lipid Panel Today E63.9 - Nutritional deficiency, unspecified, F79 - Unspecified intellectual disabilities, Z00.01 - Encounter for general adult medical examination with abnormal findings, Z86.2 - Personal history of diseases of the blood and blood-forming organs and certain disorders involving the immune mechanism, Z86.39 - Personal history of other endocrine, nutritional and metabolic disease, Z91.09 - Other allergy status, other than to drugs and biological substances Vitamin D 25-OH Total Today E63.9 - Nutritional deficiency, unspecified, F79 - Unspecified intellectual disabilities, Z00.01 - Encounter for general adult medical examination with abnormal findings, Z86.2 - Personal history of diseases of the blood and blood-forming organs and certain disorders involving the immune mechanism, Z86.39 - Personal history of other endocrine, nutritional and metabolic disease, Z91.09 - Other allergy status, other than to drugs and biological substances Vitamin B1 Today E63.9 - Nutritional deficiency, unspecified, F79 - Unspecified intellectual disabilities, Z00.01 - Encounter for general adult medical examination with abnormal findings, Z86.2 - Personal history of diseases of the blood and blood-forming organs and certain disorders involving the immune mechanism, Z86.39 - Personal history of other endocrine, nutritional and metabolic disease, Z91.09 - Other allergy status, other than to drugs and biological substances IRON PROFILE Today E63.9 - Nutritional deficiency, unspecified, F79 - Unspecified intellectual disabilities, Z00.01 - Encounter for general adult medical examination with abnormal findings, Z86.2 - Personal history of diseases of the blood and blood-forming organs and certain disorders involving the immune mechanism, Z86.39 - Personal history of other endocrine, nutritional and metabolic disease, Z91.09 - Other allergy status, other than to drugs and biological substances MM tomosynthesis screening BI Today Z12.31 - Encounter for screening mammogram for malignant neoplasm of breast Coding Level of Care Code Est Pt Prev Care 40-64y(62034) Diagnoses Annual visit for general adult medical examination with abnormal findings Z00.01 ADHD (attention deficit hyperactivity disorder) F90.9 Intellectual disability F79 Undernutrition E63.9 Environmental allergies Z91.09 History of anemia Z86.2 History of vitamin D deficiency Z86.39
[2024-01-02 11:12] VITALS: BP 100/64; PULSE 116; O2SAT 98; BMI 18.7
== END 2024-01-02 12:13 | disposition home or self-care (01) ==
LOC: HO.HMGC 10:55
PROVIDERS: PCP Internal Medicine; Visit Provider Internal Medicine
DX: Z00.00 Encounter for general adult medical examination without abnormal findings (principal); F90.9 Attention-deficit hyperactivity disorder, unspecified type; F79 Unspecified intellectual disabilities; E63.9 Nutritional deficiency, unspecified; Z91.09 Other allergy status, other than to drugs and biological substances; Z86.2 Personal history of diseases of the blood and blood-forming organs and certain disorders involving the immune mechanism; Z86.39 Personal history of other endocrine, nutritional and metabolic disease
CPT/HCPCS: 99396

== ENCOUNTER 2024-05-31 09:33 | Outpatient (REF) | payer OTHER, SELFPAY ==
--- NOTE | ~2024-05-31 | XR_ITS ---
EXAMINATION: XR CHEST CLINICAL INFORMATION: R05.9 - Cough, unspecified COMPARISON: None available. TECHNIQUE: 2 views of the chest were obtained. FINDINGS: The cardiac, hilar, and mediastinal contours are normal. The lungs are well inspired and clear bilaterally. There is no pneumothorax or pleural effusion. There is no focal osseous or soft tissue abnormality. XR/XR chest 2V IMPRESSION: No active pulmonary disease. Electronically signed by: Nguyễn Holloway MD 05/31/2024 11:03 AM LAL[facility]
[2024-05-31 15:58] LABS: Influenza A PCR NEGATIVE (Negative); Influenza B PCR NEGATIVE (Negative); Resp Syncy Virus RNA Qual PCR NEGATIVE (Negative); SARS COV2 PCR INHOUSE NEGATIVE (Negative)
== END 2024-05-31 09:34 | disposition home or self-care (01) ==
LOC: HO.HMGCX 09:33
PROVIDERS: PCP Internal Medicine; Visit Provider Physician Assistant Medical
DX: R05.9 Cough, unspecified (principal); J06.9 Acute upper respiratory infection, unspecified
CPT/HCPCS: 0241U; 71046; 99212

== ENCOUNTER → 2024-05-31 09:33 | Outpatient (AMB) | END | disposition home or self-care (01) ==

== ENCOUNTER → 2024-05-31 10:45 | Outpatient (BNV) | payer OTHER, SELFPAY | PROVIDERS: PCP Internal Medicine; Visit Provider Radiology Diagnostic Radiology | DX: R05.9 Cough, unspecified (principal) | CPT/HCPCS: 71046 ==

== ENCOUNTER 2025-01-06 10:14 | Outpatient (AMB) | payer OTHER, SELFPAY ==
--- NOTE | 2025-01-06 10:20 | A.OFFPC_ITS ---
Vital Signs 01/06/25 10:29 Height 5 ft 2 in Weight 93 lb 4 oz BMI 17.1 BP 92/66 Blood Pressure Location Lt brachial Position Sitting Respiration 16 Pulse 92 Pulse Source Pulse Oximeter Pulse Oximetry (%) 100 Oxygen Delivery Method Room Air Intake Visit Reasons: PE Intake Note: Pt is here today for her PE Allergies No Known Drug Allergies (NO KNOWN DRUG ALLERGIES) Allergy (Unknown, Verified 01/06/25 10:40) NONE Medication List - Last Reconciled 01/06/25 by Kristal Anderson MD ferrous fumarate 324 mg PO DAILY 3 months methylphenidate HCl ER (Concerta) 18 mg PO QAM Tobacco use date assessed: 01/06/25 Dental Screening Dental Screen Date: 01/06/25 Did you have a dental visit in the last 12 months?: Yes Did you have a dental problem in the last 6 months where you did not have access to dental care?: No Was dental information given to patient?: Patient has dentist HPI PE HPI Details 39-year-old lady with history of anemia, vitamin-D deficiency, under nutrition, ADHD currently not on any medication, and history of intellectual disability and time thiamine deficiency neuropathy, here today for her physical exam. It is noted that she has lost weight as compared to her last visit. [facility] Medical History History of vitamin D deficiency History of anemia Undernutrition Constipation GERD with esophagitis Intellectual disability Thiamine deficiency neuropathy IBS (irritable bowel syndrome) ADHD (attention deficit hyperactivity disorder) History of COVID-19 Annual visit for general adult medical examination with abnormal findings Surgical History History of esophagogastroduodenoscopy Family History Father No problems noted. Mother Diabetes mellitus History of thyroidectomy Maternal Grandfather No problems noted. Maternal Grandmother No problems noted. Paternal Grandfather No problems noted. Paternal Grandmother No problems noted. Brother No problems noted. Social History Household Members Other:: father Housing: House Alcohol intake: never Patient Tobacco Use Status: Never used Tobacco e-Cigarette/Vaping Use: Never Used service: No Current occupational status: unemployed Cognitive needs: No Hearing needs: No Vision needs: No Female Reproductive History Menstrual Duration of menses: 3-5 days Date of last menstrual period: 12/17/24 Questionnaire PHQ-9 Over the last 2 weeks, how often have you been bothered by any of the following problems? 1. Little interest or pleasure in doing things: not at all 2. Feeling down, depressed, or hopeless: not at all 3. Trouble falling or staying asleep, or sleeping too much: not at all 4. Feeling tired or having little energy: not at all 5. Poor appetite or overeating: not at all 6. Feeling bad about yourself - or that you are a failure or have let yourself or your family down: not at all 7. Trouble concentrating on things, such as reading the newspaper or watching television: not at all 8. Moving or speaking so slowly that other people could have noticed. Or the opposite - being so fidgety or restless that you have been moving around a lot more than usual: not at all 9. Thoughts that you would be better off or of hurting yourself in some way: not at all Total score: 0 Depression Screening Interpretation: Negative Depression Screening Done: Yes 12087 - PHQ-9 Billing: Yes Source: Developed by Drs. Alhaji Alaniz, Kerry Haider, Hugh Pagan and colleagues, with an educational rodolfo from [employer]. Thrive Questionnaire Date Thrive assessed: 01/06/25 I am a: Patient What is your living situation today?: I have a steady place to live Within the past 12 months, did the food you bought not last and you didn't have the money to get more?: I choose not to answer this question Within the past 12 months, did you worry whether your food would run out before you got money to buy more?: I choose not to answer this question Do you have trouble paying for medicines?: No Do you have trouble getting transportation to medical appointments?: No Do you have trouble paying your heating and electricity bill?: No Do you have trouble taking care of your child, family member or friend?: No Do you have trouble with day-to-day activities such as bathing, preparing meals, shopping, managing finances, etc.?: No Are you currently unemployed and looking for a job?: No Are you interested in more education?: No Please select the resources that you would like help with: None Currently or been in a relationship where the following occur: I choose not to answer THRIVE Score: 0 AUDIT C Alcohol Use Questionnaire (AUDIT-C) 1. How often do you have a drink containing alcohol?: Never 3. How often do you have six or more drinks on one occasion?: Never Total Score: 0 Score Reviewed/Action Taken: Yes TO-7 AMB Questionnaire TO-7 Date TO - 7 assessed: 01/06/25 Feeling nervous, anxious, or on edge: 0 = Not at all Not being able to stop or control worryin = Not at all Worrying too much about different things: 0 = Not at all Trouble relaxin = Not at all Being so restless that it is hard to sit still: 0 = Not at all Becoming easily annoyed or irritable: 0 = Not at all Feeling afraid as if something awful might happen: 0 = Not at all Total TO-7 score (0-4 normal; 5-9 mild; 10-14 moderate; 15-21 severe): 0 Source: Developed by Drs. Alhaji Alaniz, Kerry Haider, Hugh Pagan and colleagues, with an educational rodolfo from [employer]. TO-7 Assessment Billing TO-7 Assessment Tool: TO-7 Assessment 19563 Review of Systems ENT Details: [facility] every 6 months Physical exam (Primary Care) Vital Signs: Last Vital Signs Pulse 92 01/06/25 10:29 Resp 16 01/06/25 10:29 BP 92/66 01/06/25 10:29 Pulse Ox 100 01/06/25 10:29 Oxygen Delivery Method Room Air 01/06/25 10:29 BMI result Body Mass Index 17.1 Tobacco/Smoking Status: Tobacco use Status Tobacco use date assessed 01/06/25 01/06/25 10:28 Patient Tobacco Use Status Never used Tobacco 01/06/25 10:22 e-Cigarette/Vaping Use Never Used 01/06/25 10:22 PHQ-9: PHQ-9 Score PHQ-9: Total score 0 01/06/25 10:36 Depression Screening Interpretation: Negative Thrive Assessment: Date of Thrive Assessment Date Thrive assessed 01/06/25 01/06/25 10:36 Currently or been in a relationship where the following occur: I choose not to answer Office Procedures Flu Questionnaire Does the patient have a severe egg allergy?: No Does the patient have severe life threatening allergies?: No Does the patient have a fever or illness today?: No Has the patient ever had Guillain-Bre[place]en[place] Syndrome?: No Has the patient ever had any past reaction to a flu shot?: No Immunizations Fluarix (PF) 45 mcg (15 mcg x 3)/0.5 mL IM syringe Performing Provider: Kristal Anderson MD Performing Location: [facility] [facility] Administered by: Debra Rivera CMA on 01/06/25 10:38 Dose Route Admin Location Dispensed Lot Number Expiration Date NDC Production Cost Estimator 0.5 mL IM Left Deltoid 0.5 mL [id number] 01/06/25 50934-462-20 [place] VIS Given Date VIS Provided VIS Publication Date 01/06/25 Single Vaccine 24 Eligibility Eligibility Date Funding Source Not [facility] Eligible 01/06/25 Private Coding Level of Care Code Est Pt Prev Care 40-64y(70586) Diagnoses ADHD (attention deficit hyperactivity disorder) F90.9 History of anemia Z86.2 Intellectual disability F79 Annual visit for general adult medical examination with abnormal findings Z00.01 History of vitamin D deficiency Z86.39 Undernutrition E63.9 Severe dysmenorrhea N94.6 Additional Codes TO-7 Assessment Billing - TO-7 Assessment Tool: TO-7 Assessment 61304 ([id number]) PHQ-9 - 56871 - PHQ-9 Billing: Yes ([id number]) Assessment & Plan Assessment & Plan (1) ADHD (attention deficit hyperactivity disorder): Code(s): F90.9 - Attention-deficit hyperactivity disorder, unspecified type Category: Medical (2) History of anemia: Code(s): Z86.2 - Personal history of diseases of the blood and blood-forming organs and certain disorders involving the immune mechanism Category: Medical (3) Intellectual disability: Code(s): F79 - Unspecified intellectual disabilities Category: Medical (4) Annual visit for general adult medical examination with abnormal findings: Code(s): Z00.01 - Encounter for general adult medical examination with abnormal findings Category: Medical Plan: Patient does not want to get any Pap smear or mammogram done referred to (5) History of vitamin D deficiency: Code(s): Z86.39 - Personal history of other endocrine, nutritional and metabolic disease Category: Medical (6) Undernutrition: Code(s): E63.9 - Nutritional deficiency, unspecified Category: Medical Plan: Referred to software team leader for dietary guidance, advised to bring her father with her during visit (7) Severe dysmenorrhea: Code(s): N94.6 - Dysmenorrhea, unspecified Plan: OBGYN consult ordered Orders: Orders Complete Blood Count Auto Diff Today E51.11 - Dry beriberi, F79 - Unspecified intellectual disabilities, F90.9 - Attention-deficit hyperactivity disorder, unspecified type, Z00.01 - Encounter for general adult medical examination with abnormal findings, Z13.1 - Encounter for screening for diabetes mellitus, Z13.220 - Encounter for screening for lipoid disorders, Z86.2 - Personal history of diseases of the blood and blood-forming organs and certain disorders involving the immune mechanism, Z86.39 - Personal history of other endocrine, nutritional and metabolic disease Lipid Panel Today E51.11 - Dry beriberi, F79 - Unspecified intellectual disabilities, F90.9 - Attention-deficit hyperactivity disorder, unspecified type, Z00.01 - Encounter for general adult medical examination with abnormal findings, Z13.1 - Encounter for screening for diabetes mellitus, Z13.220 - Encounter for screening for lipoid disorders, Z86.2 - Personal history of diseases of the blood and blood-forming organs and certain disorders involving the immune mechanism, Z86.39 - Personal history of other endocrine, nutritional and metabolic disease Vitamin B1 Today E51.11 - Dry beriberi, Z86.39 - Personal history of other en docrine, nutritional and metabolic disease Comprehensive [place]. Panel Fast Today E63.9 - Nutritional deficiency, unspecified Influenza [id number] Immunization Today Z23 - Encounter for immunization Vitamin D 25-OH Total Today E51.11 - Dry beriberi, Z86.39 - Personal history of other endocrine, nutritional and metabolic disease TSH reflex Free T4 Today E63.9 - Nutritional deficiency, unspecified Referrals [facility] Referral N94.6 - Dysmenorrhea, unspecified
[2025-01-06 10:29] VITALS: BP 92/66; PULSE 92; RESP 16; O2SAT 100; BMI 17.1
== END 2025-01-06 11:01 | disposition home or self-care (01) ==
LOC: HO.HMCC 10:15
PROVIDERS: PCP Internal Medicine; Visit Provider Internal Medicine
DX: Z23 Encounter for immunization (principal)

== ENCOUNTER → 2025-01-06 10:14 | Outpatient (BNVA) | payer OTHER, SELFPAY | PROVIDERS: PCP Internal Medicine; Visit Provider Internal Medicine | DX: Z00.01 Encounter for general adult medical examination with abnormal findings (principal); F90.9 Attention-deficit hyperactivity disorder, unspecified type; E63.9 Nutritional deficiency, unspecified; N94.6 Dysmenorrhea, unspecified; Z23 Encounter for immunization; Z86.39 Personal history of other endocrine, nutritional and metabolic disease | CPT/HCPCS: 90471; 90656; 96127; 99396 ==

== ENCOUNTER 2025-01-09 09:03 | Outpatient (REF) | payer OTHER, SELFPAY ==
[2025-01-09 10:14] LABS: MANUAL DIFF FLAG NO
[2025-01-09 10:25] LABS: Hematocrit 35.3 % (37.0-47.0); Hemoglobin 11.8 g/dl (12.0-16.0); Imm Gran Abs Auto 0.00 X10*3/uL (0.00-0.03); Imm Gran Pct Auto 0.0 % (0.0-0.4); Lymphocytes Absolute Auto 1.1 X10*3/uL (1.2-4.9); Mean Corpuscular HGB Conc 33.4 g/dl (31.0-35.0); Mean Corpuscular Hemoglobin 28.4 pg (27.0-33.0); Mean Corpuscular Volume 85.1 fL (80.0-98.0); NRBC Abs Auto 0.000 X10*3/uL (0.0-0.012); NRBC Pct Auto 0.0 /100WBC (0.0-0.2); Platelet Count 232 X10*3/uL (160-400); Red Blood Count 4.15 X10*6/uL (4.20-5.50); White Blood Count 4.1 X10*3/uL (4.8-10.8)
[2025-01-09 11:31] LABS: Alanine Aminotransferase 15 U/L (0-31); Albumin Level 4.6 g/dL (3.5-5.0); Alkaline Phosphatase 69 U/L (39-117); Anion Gap 8 (12-20); Aspartate Amino Transferase 19 U/L (5-31); Blood Urea Nitrogen 11 mg/dL (9-16); Calcium 9.5 mg/dL (8.4-10.2); Carbon Dioxide 32 mmol/L (22-29); Chloride 106 mmol/L (96-108); Cholesterol 109 mg/dL (<200); Estimated Glomerular Filt Rate > 60; HDL Cholesterol 41 mg/dL (>40); Potassium 3.7 mmol/L (3.3-5.1); Sodium 142 mmol/L (135-145); Total Protein 7.4 g/dL (6.5-8.0); Triglycerides 82 mg/dL (<150)
== END 2025-01-09 09:04 | disposition home or self-care (01) ==
LOC: HO.HMGCLDS 09:03
PROVIDERS: PCP Internal Medicine; Visit Provider Internal Medicine
DX: Z00.01 Encounter for general adult medical examination with abnormal findings (principal); Z13.220 Encounter for screening for lipoid disorders; Z13.1 Encounter for screening for diabetes mellitus; E51.11 Dry beriberi; F90.9 Attention-deficit hyperactivity disorder, unspecified type; F79 Unspecified intellectual disabilities; E63.9 Nutritional deficiency, unspecified; Z86.2 Personal history of diseases of the blood and blood-forming organs and certain disorders involving the immune mechanism; Z86.39 Personal history of other endocrine, nutritional and metabolic disease
CPT/HCPCS: 36415; 80053; 80061; 82306; 84425; 84443; 85025

== ENCOUNTER 2025-04-08 09:25 | Outpatient (AMB) | payer OTHER, SELFPAY ==
[2025-04-08 09:28] VITALS: BMI 16.8
--- NOTE | 2025-04-08 09:28 | MHC.AMNUTRGE ---
VS Expanded 04/08/25 09:28 04/08/25 10:30 Height 5 ft 2 in 5 ft 2 in Weight 92 lb 92 lb BMI 16.8 16.8 Intake Visit Reasons: Nutritional deficiency, unspecified Allergies No Known Drug Allergies (NO KNOWN DRUG ALLERGIES) Allergy (Unknown, Verified 01/06/25 10:40) NONE Nutrition Presentation Details: Patient presents for medical nutrition therapy for underweight, nutritional deficiencies Patient presents with her dad during this appointment. Patient has medical history of ADHD, and intellectual disability, anemia. Patient reports currently on iron supplements and also on Concerta. Noted low level of Thiamin on recent lab Pt reports having no food allergies, reports often having low appetite, or getting full fast or keeping busy and forgetting to eat Patient reports getting up at 5 AM, due to concerns of not wanting to over sleep and also reports going to bed around 10-11 p.m, sometimes later, not able sleep. Patient participates in day/work program. Pt reports bringing own meals/snacks to the program up at 5 am (does not eat or drink anything until 8:30-9am) gets to the program at 9 am 8:30 am: 1poptart , 1/2 can of mt dew or orange soda [employer]: cookies and soda brings lunch (mashed potato and turkey), mt dew (reports sometimes not feeling hungry and does not eat it or may just eat turkey only) snack on chips or cookies , buys at a store close by the program 5-6 pm:spaghetti and meat balls (preferred) , hamburger helpers with mt dw . Meals are made by the dad, may order food 2-3 x/week goes to bed at 10 pm Sometimes plain ramen noodles as an meal if not liking what dad made for dinner BS Monitoring Most Recent Diabetes Results: Cholesterol, (<200) 109 mg/dL 01/09/25 HDL Cholesterol, (>40) 41 mg/dL 01/09/25 Triglycerides, (<150) 82 mg/dL 01/09/25 Creatinine, (0.5-1.4) 0.61 mg/dL 01/09/25 BUN, (9-16) 11 mg/dL 01/09/25 Sodium, (135-145) 142 mmol/L 01/09/25 Potassium, (3.3-5.1) 3.7 mmol/L 01/09/25 Chloride, (96-108) 106 mmol/L 01/09/25 Carbon Dioxide, (22-29) 32 mmol/L H 01/09/25 Calcium, (8.4-10.2) 9.5 mg/dL 01/09/25 AST, (5-31) 19 U/L 01/09/25 ALT, (0-31) 15 U/L 01/09/25 Total Protein, (6.5-8.0) 7.4 g/dL 01/09/25 Albumin, (3.5-5.0) 4.6 g/dL 01/09/25 KVT-Jgrhmdv-Ml.Jeor Equation Height: 5 ft 2 in Weight: 92 lb Resting Metabolic Rate: 1033.50 Calculated Activity Level: Heavy Activity Calories Needed to Maintain Weight: 1756.95 Diagnosis Nutrition problem #1: malnutrition As related to (etiology) #1: altered metabolism nutri and unsure how to apply info (pt with ADHD and hx of itellectual disability) As evidenced by (sign/symptom) #1: poor PO intake and low BMI (physical examination: buccal fat loss, thinning hair. Labs: low B1 level, anemia) Monitoring/Goals Nutrition problem monitoring: level of knowledge/skill, total PRO intake, weight and oral fluids Nutrition goal/outcome: wt gain 5lbs in 2 months (increasing protein intake with current snacks) Outcome progress: verbalized understanding Learning/Education Readiness to learn: fair Stages of change: contemplation Educational materials provided: Yes (Snacks currently having and protein foods to add with current snack) PFSH Medical History History of vitamin D deficiency History of anemia Undernutrition Constipation GERD with esophagitis Intellectual disability Thiamine deficiency neuropathy IBS (irritable bowel syndrome) ADHD (attention deficit hyperactivity disorder) History of COVID-19 Annual visit for general adult medical examination with abnormal findings Surgical History History of esophagogastroduodenoscopy Family History Father No problems noted. Mother Diabetes mellitus History of thyroidectomy Maternal Grandfather No problems noted. Maternal Grandmother No problems noted. Paternal Grandfather No problems noted. Paternal Grandmother No problems noted. Brother No problems noted. Social History Household Members Other:: father Housing: House Alcohol intake: never Patient Tobacco Use Status: Never used Tobacco e-Cigarette/Vaping Use: Never Used service: No Current occupational status: unemployed Cognitive needs: No Hearing needs: No Vision needs: No Assessment & Plan Assessment & Plan (1) Undernutrition: Code(s): E63.9 - Nutritional deficiency, unspecified Category: Medical Plan: Incorporate protein rich foods and gradually increase on total caloric intake - discussed relationship of foods and prevention of nutrient deficiency -discussed relationship of nutrient deficiency and muscle wasting - discussed foods sources of protein , thiamine and explored options Pt is willing to try (tuna, chicken, burgers, eggs, fairlife, peanut butter, whole grains) Patient Instructions: Have full fat milk (ok with chocolate) with the poptarts at 8:30 am Have a protein shake (fairlife) with the chips for your after lunch snack Add 2 eggs to ramen noodles if not eating the meal made by your dad Coding Level of Care Code Nutr Indiv Intake (58420) Diagnoses Undernutrition E63.9 Time Spent (min) 30
[2025-04-08 10:30] VITALS: BMI 16.8
== END 2025-04-08 10:33 | disposition home or self-care (01) ==
LOC: HO.ENCR 09:26
PROVIDERS: PCP Internal Medicine; Visit Provider Dietitian, Registered
DX: E63.9 Nutritional deficiency, unspecified (principal)

== ENCOUNTER → 2025-04-08 09:25 | Outpatient (BNVA) | payer OTHER, SELFPAY | PROVIDERS: PCP Internal Medicine; Visit Provider Dietitian, Registered | DX: E63.9 Nutritional deficiency, unspecified (principal); Z71.3 Dietary counseling and surveillance | CPT/HCPCS: 97802 ==